=== PATIENT | male | born 1975 | race Caucasian/White ===

== ENCOUNTER 2020-01-01 10:54 | Emergency (ER) | payer OTHER ==
[~2020-01-01] VITALS: Ht 188 cm; Wt 81.6 kg
[2020-01-01 11:22] VITALS: Ht 188 cm; Wt 81.6 kg
[2020-01-01 12:37] LABS: BASOPHIL % 0.6 % (0-2); PLATELET COUNT 231 x10^3mcL (130-400); RED CELL DISTRIBUTION WIDTH 13.6 % (11.5-14.5)
[2020-01-01 12:43] LABS: CALCIUM 9.2 mg/dL (8.5-10.1); CARBON DIOXIDE 33.1 mmol/L (21-32); CHLORIDE SERUM 101 mmol/L (98-107); CREATININE SERUM 1.2 mg/dL (0.7-1.3); GFR1 > 60 mL/min; GLUCOSE SERUM 97 mg/dL (74-106); POTASSIUM SERUM 3.8 mmol/L (3.5-5.1); SODIUM SERUM 137 mmol/L (136-145)
[2020-01-01] MEDS ORDERED: ALL DAY ALLERGY10 M2 PO (16:07)
[2020-01-01 18:01] LABS: MAGNESIUM 2.1 mg/dL (1.8-2.4); PHOSPHOROUS 3.2 mg/dL (2.5-4.9)
[2020-01-01 18:02] LABS: CHOLESTEROL/HDL RATIO 4.7
[2020-01-01 23:22] VITALS: BP 107/74
== END 2020-01-01 23:22 | disposition left against medical advice (07) ==
LOC: ED 10:54 → MU 14:30 → ED 14:30
PROVIDERS: Emergency Medicine; Student in an Organized Health Care Education/Training Program
DX: R42 Dizziness and giddiness (principal); M54.2 Cervicalgia
CPT/HCPCS: 86480; 87116; 87206; G0378; J2405; J7030; J8597; Q0092; Q9967